=== PATIENT | female | born 1945 | race Caucasian/White ===

== ENCOUNTER → 2023-06-05 08:42 | Outpatient (CLI) | payer MEDICARE, SELFPAY ==
--- NOTE | ~2023-06-05 | CT_ITS ---
EXAMINATION: CT abdomen w con DATE: 06/05/2023 09:15 INDICATION: Diaphragmatic hernia without obstruction. Generalized abdominal pain. TECHNIQUE: Computed tomography (CT) of the abdomen was performed with 100 mL Omnipaque 350 intravenou s contrast. Automated exposure control and iterative reconstruction technique were employed. The dose -length product was 185.08 mGy-cm. COMPARISON: None. FINDINGS: The visualized portions of the lung bases demonstrate mild atelectasis and mild chronic delon g disease. No pleural effusion. There is left atrial enlargement of the heart. There are coronary art shawn calcifications. No pericardial effusion. There is a large sliding hiatal hernia. There are cysts in the liver measuring up to 9 mm. The gallbladder, spleen, pancreas, and adrenal glands are normal. There is cortical thinning of the kidneys. There are no dilated loops of bowel. Aortic atherosclerosi s is noted. There are no pathologically enlarged lymph nodes. There is no free intraperitoneal fluid. There is severe thoracic and lumbar spondylosis. There are changes of anterior and posterior fusion procedures at L4-L5. There is lumbar levoscoliosis. IMPRESSION: 1. Large sliding hiatal hernia. Reviewed, dictated and finalized at location E.
[2023-06-05 09:03] LABS: Estimated Glomerular Filt Rate > 60
== END ==
PROVIDERS: PCP Nurse Practitioner; Visit Provider Surgery
DX: K44.9 Diaphragmatic hernia without obstruction or gangrene (principal); K21.9 Gastro-esophageal reflux disease without esophagitis
CPT/HCPCS: 74160; Q9967

== ENCOUNTER 2023-11-27 08:41 | Outpatient (CLI) | payer MEDICARE, SELFPAY ==
--- NOTE | 2023-11-27 08:58 | ECG_ITS ---
SEE SCANNED COPY FOR CONFIRMED REPORT MTDD
== END 2023-11-27 08:42 | disposition home or self-care (01) ==
LOC: ANHSURGERY 08:43
PROVIDERS: PCP Nurse Practitioner; Visit Provider Surgery
DX: Z01.818 Encounter for other preprocedural examination (principal); E78.00 Pure hypercholesterolemia, unspecified; K44.9 Diaphragmatic hernia without obstruction or gangrene
CPT/HCPCS: 36415; 86850; 86900; 86901; 93005

== ENCOUNTER 2023-12-01 01:06 | Day surgery (SDC) | payer MEDICARE, SELFPAY ==
[2023-11-26 10:33] VITALS: BMI 24.7
--- NOTE | 2023-11-26 10:48 | PC.NURSE ---
Addendum entered by Jessika Hart RN 11/27/23 13:17: PT CONTACTED AND INFORMED CLEAR LIQUID DIET DAY PRIOR TO SURGERY - UNDERSTANDING VOICED Original Note: PRE-OP INSTRUCTIONS, PLEASE READ CAREFULLY Report to the Outpatient Waiting Room, entrance under the green pavilion located off [facility], at time _0600_ on date _12/01/23_. Planned Procedure Time: _0730_. PACK A SMALL OVERNIGHT BAG AND LEAVE IN THE CAR Time changes happen often and if your time is changed the preop area will call you the afternoon before. 2 PEOPLE ALLOWED WITH YOUR IN PRE-OP - You and your visitor will be asked to self-screen and do not enter if you have any COVID symptoms. - A mask is optional within the hospital at this time. -VISITING HOURS 8AM-8PM Patients may have clear liquids (water, carbonated beverages, clear teas, apple juice) until 3 hours prior to surgery (0430 AM) with a maximum of 20 ounces. - No food from midnight until time of surgery Take the following medications with a SIP of water the morning of surgery: _SERTRALINE, & TYLENOL IF NEEDED_ DO NOT STOP ANY OF YOUR OTHER PRESCRIPTION MEDICATIONS PRIOR TO SURGERY ?EXCEPT THE FOLLOWING Medications to discontinue per physician ____NONE , Date to take last dose Please no make-up, nail cambodian, hairspray, perfume, deodorant, or body powder the day of surgery. No jewelry (including any body piercings) or valuables the day of surgery, leave them at home. Please take a shower or bath the night before, or the morning of, surgery with an antibacterial soap. Wear comfortable, loose fitting clothing. - Jewelry must be removed prior to entering the operating room. Rings and piercings that are not removed may be cut off. - The hospital will not accept responsibility for valuables. - Please leave all valuables, including medications, at home the day of surgery. If you are going home after surgery, a licensed rolloff truck driver must drive you home. - NO public transportation without another adult if you receive anesthesia. - We recommend that an adult stay with you for 24 hours following discharge. - We also recommend that you do not drive, make important decision, drink alcoholic beverages, or take any drugs that were not prescribed by your health care provider for at least 24 hours after your discharge time. Follow any additional instructions given to you from your surgeon. If you or anyone in your household have experienced Covid symptoms in the past week, please notify your surgeon or the nurse liaison at the phone number below for possible testing. Telephone instructions given to _PATIENT_and asked if any additional questions and then verbalized understanding. Patient advised to call surgeon office or pre surgery nurse liaison [phone] if any additional questions.
[2023-12-01] VITALS (17 sets, daily range): BP systolic 113–168; BP diastolic 43–73; PULSE 59–78; RESP 10–22; TEMP 36.2–37; O2SAT 91–100
[2023-12-01] MEDS: LACTATED RINGERS 1,000 ML 30 ML IV CONT ×2 (06:45→10:43)
[2023-12-01] MEDS: ACETAMINOPHEN 500 MG TABLET 1000 MG PO (06:45)
[2023-12-01] MEDS: KETOROLAC 15 MG/ML VIAL (*BKC) IV PUSH (06:45)
--- NOTE | 2023-12-01 07:07 | PM.IMHP ---
H&P: HPI History of Present Illness Date/Time: 12/01/23 07:07 Chief Complaint: Hiatal hernia Narrative: 78 yo woman presents for hiatal hernia repair. She reports no changes since last seen in office. Review of Systems Review of Systems: All systems reviewed & are unremarkable except as noted in HPI and below Constitutional: Constitutional: Denies chills, Denies fever(s), Denies headache(s) and Denies weight loss Eyes: Eyes: Denies change in vision ENT: Denies dizziness, Denies headache(s), Denies neck mass and Denies throat swelling Cardiovascular: Cardiovascular: Denies chest pain, Denies lightheadedness and Denies dyspnea Respiratory: Respiratory: Denies cough, Denies dyspnea and Denies wheezing Gastrointestinal: Gastrointestinal: Denies abdominal pain, Denies change in bowel habits, Denies nausea and Denies vomiting Genitourinary: Genitourinary: Denies hematuria and Denies dysuria Musculoskeletal: Musculoskeletal: Reports as per HPI Integumentary/Breasts: Skin/Breast: Reports as per HPI Neurologic: Denies dizziness and Denies headache(s) Allergic/Immunologic: Allergic/Immunologic: Denies throat swelling and Denies wheezing [facility] Past Medical History Medical History (Updated 10/29/23 @ 13:45 by Yamileth Mazariegos) Diabetes GERD (gastroesophageal reflux disease) Surgical History Surgical History (Updated 05/29/23 @ 10:22 by Rupinder Crowell MA) H/O shoulder surgery 2018, 2021 History of foot surgery History of hysterectomy Family History Family History (Updated 05/29/23 @ 10:20 by Rupinder Crowell MA) Mother Cancer Father Cancer Social History Social History (Updated 05/29/23 @ 10:21 by Rupinder Crowell MA) Smoking packs per day: 2 Smoking cigarettes per day: 40.0 Years smoked: 25 Smoking pack-years: 50.00 Smoking status: Former smoker Tobacco type: cigarettes Second hand tobacco smoke exposure: No Smoking end date: 08/10/84 Alcohol intake: current Alcohol use details: STATES MAYBE 10/YR Substance use: never Substance use type: does not use Living arrangements: with family Additional living arrangements comments: LIVES WITH SPOUSE SOF[employer]A Occupation/Education: retired Spiritual care concerns: No Meds Home Medications and Allergies Home Medications Medication Instructions Recorded Confirmed Type acetaminophen 325 mg tablet 650 mg PO QID PRN Pain 11/26/23 11/26/23 History (Tylenol) atorvastatin 40 mg tablet 40 mg HS 11/26/23 11/26/23 History metformin 500 mg tablet 500 mg BID 11/26/23 11/26/23 History pantoprazole 40 mg tablet,delayed 40 mg PO BID 11/26/23 11/26/23 History release pramipexole 0.5 mg tablet 0.5 mg HS 11/26/23 11/26/23 History sertraline 100 mg tablet 100 mg BID 11/26/23 11/26/23 History Allergies Allergy/AdvReac Type Severity Reaction Status Date / Time Penicillins Allergy Intermediate RASH Verified 11/26/23 10:30 Quinolones Allergy Intermediate RASH Verified 11/26/23 10:30 Exam Const: General: no acute distress and alert Orientation/consciousness: patient oriented x3 HENMT: Head: normocephalic and atraumatic Ears: hearing grossly normal bilaterally Face/Nose/Sinus: Normal nares present Mouth: Yes Normal oral and palatal mucosa present Eyes: Periorbital: periorbital findings normal Sclera: sclerae normal EOM: EOMs intact bilaterally Neck: Neck: normal visual inspection, no lymphadenopathy and trachea midline Chest: Chest palpation & inspection: normal inspection of the chest Resp: Effort & Inspection: normal respiratory effort Auscultation: clear to auscultation bilaterally Cardio: Jugular venous distension: no JVD Rate: regular rate Rhythm: regular rhythm Heart sounds: S1 normal heart sound present and S2 normal heart sound present Peripheral pulses: Peripheral pulses 2+ throughout GI: Inspection: normal to inspection GI Palp: Yes Soft to palpation, No Tenderness to palpation presen
[2023-12-01 07:14] LABS: Glucose Point of Care 94 mg/dl (65-105)
--- NOTE | 2023-12-01 07:16 | WPDHPUPDATE1 ---
History and Physical Update Update Date/Time: 12/01/23 07:16 History and Physical has been reviewed, including an updated exam of the patient. There are NO changes in the patient's condition. Risks, benefits, and alternatives have been discussed and questions answered. Patient agrees to proceed with procedure.
[2023-12-01] MEDS: ceFAZolin 2 GM/D5W 50 ML 2 GM/50 ML BAG IVPB (07:29)
--- NOTE | 2023-12-01 07:31 | WPDANESEPPF ---
Anes - Initial Pre Proc Eval Procedure: Operation Date: 12/01/23 07:30 Proposed Procedures p Laparoscopic Paraesophageal Hiatal Hernia with Fundoplication, Possible Mesh, Davinci Assisted - Les Roper DO Date/Time: 12/01/23 07:31 Surgeon: Les Roper DO Pre Op Diagnosis: hiatal hernia, gerd Patient Data Age: 78 Gender: F Height: 1.49 m Weight: 54.54 kg Allergies Allergy/AdvReac Type Severity Reaction Status Date / Time Penicillins Allergy Intermediate RASH Verified 11/26/23 10:30 Quinolones Allergy Intermediate RASH Verified 11/26/23 10:30 Home Medications Medication Instructions Recorded Confirmed Type acetaminophen 325 mg tablet 650 mg PO QID PRN Pain 11/26/23 11/26/23 History (Tylenol) atorvastatin 40 mg tablet 40 mg HS 11/26/23 11/26/23 History metformin 500 mg tablet 500 mg BID 11/26/23 11/26/23 History pantoprazole 40 mg tablet,delayed 40 mg PO BID 11/26/23 11/26/23 History release pramipexole 0.5 mg tablet 0.5 mg HS 11/26/23 11/26/23 History sertraline 100 mg tablet 100 mg BID 11/26/23 11/26/23 History Laboratory Tests 12/01/23 12/01/23 07:05 07:07 Sodium Pending Potassium Pending Chloride Pending Carbon Dioxide Pending Anion Gap Pending BUN Pending Creatinine Pending Estim Creat Clear Calc Pending Estimated GFR Pending Glucose Pending POC Capillary Glucose 94 mg/dl (65-105) Calcium Pending Patient hx anesthesia problems: none Family hx anesthesia problems: none Results Review: All pre-operative results and documents have been reviewed as part of the pre-operative evaluation. [facility] Past Medical History Medical History (Updated 10/29/23 @ 13:45 by Yamileth Mazariegos) Diabetes GERD (gastroesophageal reflux disease) Surgical History Surgical History (Updated 05/29/23 @ 10:22 by Rupinder Crowell MA) H/O shoulder surgery 2018, 2021 History of foot surgery History of hysterectomy Family History Family History (Updated 05/29/23 @ 10:20 by Rupinder Crowell MA) Mother Cancer Father Cancer Social History Social History (Updated 05/29/23 @ 10:21 by Rupinder Crowell MA) Smoking packs per day: 2 Smoking cigarettes per day: 40.0 Years smoked: 25 Smoking pack-years: 50.00 Smoking status: Former smoker Tobacco type: cigarettes Second hand tobacco smoke exposure: No Smoking end date: 08/10/84 Alcohol intake: current Alcohol use details: STATES MAYBE 10/YR Substance use: never Substance use type: does not use Living arrangements: with family Additional living arrangements comments: LIVES WITH SP[employer]SE [employer] Occupation/Education: retired Spiritual care concerns: No Anes - Eval Final PreProcedure Day of Procedure 12/01/23 07:31 Patient weight: normal Heart: regular rate and rhythm Lungs: clear to auscultation Airway: Mallampati scale class II Neurological: alert and oriented Last oral intake: >/= 8 hours ASA classification: III Emergent: no Anesthetic plan: proceed Anesthesia type and monitoring: general ETT and standard monitoring Results Review: All pre-operative results and documents have been reviewed as part of the pre-operative evaluation. Informed Consent: The patient's anesthetic plan and its attendant risks and benefits were discussed with the patient/family/POA. Questions were solicited and answers provided to the satisfaction of the patient/family/POA.
[2023-12-01 07:32] LABS: Anion Gap 5 mmol/L (4-12); Blood Urea Nitrogen 21 mg/dL (7-17); Calcium 9.8 mg/dL (8.4-10.2); Carbon Dioxide 25 mmol/L (22-30); Chloride 108 mmol/L (98-107); Estimated Glomerular Filt Rate > 60; Glucose 102 mg/dL (65-110); Potassium 4.1 mmol/L (3.4-5.0); Sodium 138 mmol/L (137-145)
[2023-12-01] MEDS: BUPIVACAINE/EPINEPHRINE 0.5% 30 ML VIAL 50 ML INFILTRATE (08:17)
--- NOTE | 2023-12-01 10:50 | W.PM.PROC2 ---
Procedure Note - Detailed Date of Procedure 12/01/23 Pre-op Diagnosis hiatal hernia, gerd Post-op Diagnosis Same (Type 3 paraesophageal hiatal hernia) Procedure Performed Robotic assisted laparoscopic paraesophageal hernia repair with 270 degree fundoplication Surgeon Les Roper, DO Anesthesia General and Local (0.5% bupivicaine with epi) Indications This is a 78-year-old woman who presented with a large hiatal hernia. She had been experiencing acid reflux and dysphagia symptoms for more than 10 years. She has been on twice a day Protonix with only minimal relief. She had undergone EGD, esophageal manometry, and upper GI contrast study. A large hiatal hernia was identified. Discussions were made with the patient about treatment options and decision was made to proceed with robotic assisted laparoscopic hiatal hernia repair with fundoplication. Findings The patient was found to have a type 3 paraesophageal hiatal hernia with her GE junction about 6 cm above the diaphragm and a portion of her fundus and body of the stomach up into the hiatal hernia. The hernia sac was carefully dissected. I then excised a portion of the hernia sac to allow for the fundoplication. Decision was made to perform a 270 degree fundoplication. No other intra-abdominal abnormalities were noted. Description of Procedure Procedure as well as risks, benefits, and alternatives were discussed with the patient. Written consent was obtained and placed in chart prior to procedure. Patient was brought back to surgical suite. She was placed supine on operating table. Time-out was done to confirm patient and procedure. She was then intubated by the anesthesia department. Her abdomen was prepped and draped in sterile fashion using chlorhexidine prep. 0.5% bupivacaine with epinephrine was infiltrated locally around each area for port placement. An 8 mm incision was made in the left upper quadrant 2 cm inferior to the costal margin in the mid clavicular line. A 5 mm Optiview trocar was then advanced through the abdominal layers under direct visualization. Once inside the abdominal cavity, carbon dioxide insufflation was used to create a pneumoperitoneum. The camera was inserted in the abdomen was inspected. No immediate abnormalities were identified. Another 8 mm camera port was placed about 15 cm inferior to the xiphoid just to the left of midline under direct visualization. An 8 mm port was placed in the anterior axillary line on the left upper quadrant at about the same transverse plane as the camera port. An 8 mm port was placed in the right upper quadrant and another 8 mm AirSeal assist port was placed in right lower quadrant just to the right of the umbilicus. A 5 mm incision was made in the subxiphoid region and the Giovanni liver retractor was inserted through this incision into the abdominal cavity to lift up the left lobe of the liver. This was secured in place to the bed of the table. The patient was then placed in 30? reverse Trendelenburg. The robotic arms were secured to the ports and the robotic camera and instruments were inserted. A force bipolar grasper was placed in the right upper quadrant port. The vessel sealer was placed in the midclavicular left upper quadrant port and a Cadiere grasper was placed in the anterior axillary line left upper quadrant port. I then moved over to the robotic console took control of the camera and instruments. A careful thorough exam was performed throughout the abdomen. The stomach was then reduced from within the hiatal hernia. The gastrohepatic ligament was taken down medially using the vessel sealer to identify the right andrey. Peritoneum along the medial side of the right andrey was then divided using the vessel sealer. This allowed me to enter into the avascular plane and carefully dissect the hernia sac from within the hiatus. I continued the peritoneal incision along the right andrey up to the anterior portion of the di
[2023-12-01 11:12] LABS: Glucose Point of Care 166 mg/dl (65-105)
--- NOTE | 2023-12-01 13:08 | ADMGEN ---
This patient, Nery Randle, was admitted to [facility] Surg Room 322-01. Patient/family oriented to hospital policies and general routines including ID bracelet, bed and alarms, visiting hours, pain management, procedures, bathroom and other care routines, personal items, smoking policy, room service/diet, and visiting hours. Information on how to activate the Rapid Response Team has been discussed. Patient/Family are encouraged to report perceived risks to care and to ask questions if they do not understand what they are told or what they should do. patient stable at transfer. family at bedside. denies pain, arrived with 2 LNC.
[2023-12-01] MEDS: LACTATED RINGERS 1,000 ML 100 ML IV CONT (15:05)
[2023-12-01] MEDS: SERTRALINE HCL 50 MG TABLET 100 MG PO (17:26)
[2023-12-01] MEDS: metFORMIN HCL 500 MG TABLET PO (17:27)
[2023-12-01] MEDS: PANTOPRAZOLE 40 MG TABLET PO (17:27)
[2023-12-01] MEDS: MORPHINE SULFATE (*CRX) 4 MG/ML INJ IV PUSH (17:32)
[2023-12-01 17:51] LABS: Glucose Point of Care 145 mg/dl (65-105)
[2023-12-01] MEDS: PRAMIPEXOLE 0.5 MG TABLET PO (20:53)
[2023-12-01] MEDS: ACETAMINOPHEN 500 MG TABLET PO (20:53)
[2023-12-01] MEDS: oxyCODONE HCL (*CRX) 5 MG TAB IR PO (20:53)
[2023-12-01] MEDS: ATORVASTATIN 40 MG TABLET PO (20:53)
[2023-12-01] MEDS: ONDANSETRON INJ 4 MG/2 ML VIAL IV PUSH (20:54)
[2023-12-01 20:59] LABS: Glucose Point of Care 124 mg/dl (65-105)
[2023-12-02 00:30] VITALS: BP 109/50; PULSE 63; RESP 16; TEMP 36.8; O2SAT 92
[2023-12-02] MEDS: ONDANSETRON INJ 4 MG/2 ML VIAL IV PUSH (03:50)
[2023-12-02] MEDS: MORPHINE SULFATE (*CRX) 4 MG/ML INJ IV PUSH (03:50)
[2023-12-02 04:30] VITALS: BP 128/75; PULSE 59; RESP 16; TEMP 36.5; O2SAT 92
[2023-12-02] MEDS: oxyCODONE HCL (*CRX) 5 MG TAB IR PO (04:39)
[2023-12-02 07:11] LABS: Hematocrit 37.2 % (37.0-47.0); Hemoglobin 11.6 g/dL (12.0-15.0); Mean Corpuscular HGB Conc 31.2 g/dl (32-36); Mean Corpuscular Hemoglobin 29.8 pg (26-34); Mean Corpuscular Volume 95.6 fl (80-100); Mean Platelet Volume 10.7 fl (7.4-10.4); Platelet Count Result 194 k/mm3 (150-375); Red Blood Count 3.89 M/mm3 (4.2-5.4); Red Cell Distribution Width 14.1 % (11.5-14.5)
[2023-12-02 07:22] LABS: Anion Gap 1 mmol/L (4-12); Blood Urea Nitrogen 19 mg/dL (7-17); Calcium 8.8 mg/dL (8.4-10.2); Carbon Dioxide 30 mmol/L (22-30); Chloride 104 mmol/L (98-107); Estimated Glomerular Filt Rate > 60; Glucose 97 mg/dL (65-110); Potassium 4.1 mmol/L (3.4-5.0); Sodium 135 mmol/L (137-145)
[2023-12-02 07:59] LABS: Glucose Point of Care 109 mg/dl (65-105)
--- NOTE | 2023-12-02 08:09 | WPDANESPN ---
Anes - Prog Note Post-Op Date/Time: 12/02/23 08:09 Cardiovascular status: normal Respiratory status: normal Airway patency: baseline Mental status: baseline Post-Op hydration status: normal Vital Signs: Last Vital Signs Temp 36.5 C 12/02/23 04:30 Pulse 59 L 12/02/23 04:30 Resp 16 12/02/23 04:30 BP 128/75 12/02/23 04:30 Pulse Ox 92 12/02/23 04:30 O2 Del Method Nasal Cannula 12/01/23 13:12 O2 Flow Rate 2 12/01/23 13:12 Pain Score (VAS): 0 I/O: Intake & Output 12/01/23 12/02/23 12/02/23 23:59 07:59 15:59 Intake Total 360 Balance 360 Laboratory Tests 12/02/23 06:51 12/02/23 06:51 12/01/23 12/01/23 12/01/23 10:51 17:47 20:03 WBC RBC Hgb Hct MCV MCH MCHC RDW Plt Count MPV Sodium Potassium Chloride Carbon Dioxide Anion Gap BUN Creatinine Estim Creat Clear Calc Estimated GFR Glucose POC Capillary Glucose 166 H 145 H 124 H Calcium 12/02/23 12/02/23 06:51 07:41 WBC 7.0 RBC 3.89 L Hgb 11.6 L Hct 37.2 MCV 95.6 MCH 29.8 MCHC 31.2 L RDW 14.1 Plt Count 194 MPV 10.7 H Sodium 135 L Potassium 4.1 Chloride 104 Carbon Dioxide 30 Anion Gap 1 L BUN 19 H Creatinine 0.80 Estim Creat Clear Calc Not Reportable Estimated GFR > 60 Glucose 97 POC Capillary Glucose 109 H Calcium 8.8 Post-procedural complaints: none Patient Feedback: Patient satisfied with anesthetic care.
[2023-12-02] MEDS: SERTRALINE HCL 50 MG TABLET 100 MG PO (08:11)
[2023-12-02] MEDS: metFORMIN HCL 500 MG TABLET PO (08:11)
[2023-12-02] MEDS: ACETAMINOPHEN 500 MG TABLET PO (08:11)
[2023-12-02] MEDS: ENOXAPARIN 40 MG/0.4 ML SYRINGE SUB-Q (08:11)
[2023-12-02] MEDS: PANTOPRAZOLE 40 MG TABLET PO (08:12)
[2023-12-02 10:45] VITALS: BP 105/53; PULSE 61; RESP 18; TEMP 36.9; O2SAT 95
[2023-12-02 11:36] LABS: Glucose Point of Care 98 mg/dl (65-105)
--- NOTE | 2023-12-02 13:18 | PM.DS ---
DS: Admitting Diagnosis Discharge Date 12/02/2023 Admitting Diagnosis Hiatal hernia, GERD DS: Discharge Diagnosis Discharge Diagnosis (1) Hiatal hernia: Code(s): K44.9 - Diaphragmatic hernia without obstruction or gangrene Status: Acute (2) GERD (gastroesophageal reflux disease): Qualifiers: Esophagitis presence: esophagitis presence not specified Qualified Code(s): K21.9 - Gastro-esophageal reflux disease without esophagitis Code(s): K21.9 - Gastro-esophageal reflux disease without esophagitis Status: Acute DS: Summary Hospital Course Reason for hospitalization: Large hiatal hernia Hospital Course: This is a 78-year-old woman who presented for hiatal hernia repair. She underwent robotic assisted laparoscopic paraesophageal hiatal hernia repair with 270 degree fundoplication on 12/01/2023. Surgery was uncomplicated and she was placed in outpatient extended recovery postoperatively. She was started clear liquid diet and pain was controlled with IV and p.o. pain medications. She was tolerating clear liquid diet and remaining hemodynamically stable. On postop day 1 she was advanced to a full liquid diet. She tolerated this with no episodes of regurgitation or vomiting. Her pain was adequately controlled other than experiencing some gas pains radiating up to her shoulders. She was discharged on 12/02/2023. Status at Discharge Functional status at discharge: independent ambulation Overall status at discharge: patient is progressing back to baseline Time Spent with Patient Time attestation: Total time spent providing and/or coordinating discharge services: Time spent: Less than 30 minutes Exam Const: General: comfortable and no acute distress Resp: Effort & Inspection: normal respiratory effort Auscultation: clear to auscultation bilaterally Cardio: Rate: regular rate Rhythm: regular rhythm GI: Inspection: non-distended and incision (intact with glue) GI Palp: Yes Soft to palpation and Yes Tenderness to palpation present (GI) (incisional) Auscultation: normal bowel sounds DS: Data Data Completed and Pending Completed studies during hospitalization: Pending at discharge 12/01/23 09:32 Surgical [PTH] Routine Labs on day of discharge: Labs from last 24 hours 12/02/23 12/02/23 12/02/23 11:31 07:41 06:51 WBC 7.0 RBC 3.89 L Hgb 11.6 L Hct 37.2 MCV 95.6 MCH 29.8 MCHC 31.2 L RDW 14.1 Plt Count 194 MPV 10.7 H Sodium 135 L Potassium 4.1 Chloride 104 Carbon Dioxide 30 Anion Gap 1 L BUN 19 H Creatinine 0.80 Estim Creat Clear Calc Not Reportable Estimated GFR > 60 Glucose 97 POC Capillary Glucose 98 109 H Calcium 8.8 12/01/23 12/01/23 20:03 17:47 WBC RBC Hgb Hct MCV MCH MCHC RDW Plt Count MPV Sodium Potassium Chloride Carbon Dioxide Anion Gap BUN Creatinine Estim Creat Clear Calc Estimated GFR Glucose POC Capillary Glucose 124 H 145 H Calcium Discharge Plan Discharge Patient Disposition: Home, Self-Care Discharge Instructions: DISCHARGE INSTRUCTION SHEET FOR HERNIA, GALLBLADDER AND APPENDIX SURGERIES DR. FISHER PATIENT TO TAKE HOME 1. May shower in 24 hours, no soaking in bath x 2weeks. 2. Call office for: Wound increasingly painful or bleeding Vomiting Fever of greater than 101 degrees 3. If no bowel movement for three days, take 1 oz. (30 ml) Milk of Magnesia or MiraLax 17g 1 to 2 times daily. 4. No heavy lifting > 10-15 pounds x 4 weeks for hernia repairs 5. No driving for 3 days or while taking narcotic pain medications. 6. Ice to surgical site for 48 hours (30 min on, then 30 min off). 7. Up walking 10-30 minutes three times per day. 8. Resume previous home medications. 9. Follow-up 10-14 days in office for wound check or as prev
== END 2023-12-02 14:45 | disposition home or self-care (01) ==
LOC: ANHSURGERY 05:53 → ANH3MEDSUR 12:36
PROVIDERS: Anesthesiology; PCP Nurse Practitioner; Visit Provider Surgery
PROC: 0DV44ZZ Restriction of Esophagogastric Junction, Percutaneous Endoscopic Approach (ICD-10-PCS; CPT 43280; principal; 2023-12-01 07:30)
DX: K44.9 Diaphragmatic hernia without obstruction or gangrene (principal); K21.9 Gastro-esophageal reflux disease without esophagitis; E11.9 Type 2 diabetes mellitus without complications; Z79.84 Long term (current) use of oral hypoglycemic drugs; Z87.891 Personal history of nicotine dependence
CPT/HCPCS: 43280; S2900; 36415; 80048; 82948; 85027; 86850; 86900; 86901; 88302; 93005; A9270; J0690; J1100; J1170; J1650; J1885; J1940; J2270; J2405; J2704; J3010; J7030; J7120